=== PATIENT | male | born 1955 | race Caucasian/White ===

== ENCOUNTER 2022-06-15 17:12 | Inpatient (IN) | payer MEDICARE ==
[~2022-06-15] VITALS: Ht 190.5 cm; Wt 108.0 kg
[~2022-06-15 17:12] MED LIST: ASPI325EC PO; ATOR10; ATOR20 PO; BUPR150T2; Co Q-10300 MG PO; EZET10 PO; Ester-C 500 MG1 EACH PO; FEXPSEER PO; Fish Oil300 MG PO; Hydrocodone-Ap1 EA23 PO; IBUP800; KRILL OIL 3001 EACH PO; LISI5 PO; NEBI5 PO; NITR.4SL SL; VITAMIN D31000 UNIT PO; ZOLP10 PO; ZOLP5
[2022-06-15 17:36] LABS: Hematocrit 39.3 % (37.0-53.0); Hemoglobin 13.3 g/dL (13.5-17.5); Mean Corpuscular HGB 33.5 pg (26.0-34.0); Mean Corpuscular HGB Conc 33.8 g/dL (31.5-36.5); Mean Corpuscular Volume 99 fL (80-100); Mean Platelet Volume 9.6 fL (9.1-12.4); Platelet Count 202 K/mm3 (150-400); RDW Coefficient Variation 12.4 % (11.7-14.2); Red Blood Cell Count 3.97 M/mm3 (4.30-5.90); White Blood Cell Count 19.01 K/mm3 (4.00-11.30)
[2022-06-15 17:54] LABS: Albumin, Blood 3.9 g/dL (3.4-5.0); Albumin/Globulin Ratio 1.3 (0.8-1.8); Bilirubin, Total 0.8 mg/dL (0.1-1.0); Calcium, Blood 8.5 mg/dL (8.5-10.1); Creatinine, Blood 1.28 mg/dL (0.60-1.20); Globulin, Blood 3.1 g/dL (2.2-4.0); Magnesium, Blood 2.6 mg/dL (1.6-2.4); Potassium, Blood 4.3 mmol/L (3.5-5.5)
[2022-06-15 19:18] LABS: BASOPHILS PERCENT MAN 0 % (0-2); EOSINOPHILS PERCENT MAN 0 % (0-6); LYMPHOCYTES ABSOLUTE MAN 14.63 K/mm3 (0.84-5.20); LYMPHOCYTES PERCENT MAN 77 % (21-46); MONOCYTES ABSOLUTE MAN 0.76 K/mm3 (0.16-1.47); MONOCYTES PERCENT MAN 4 % (4-13); NEUTROPHILS ABSOLUTE MAN 3.61 K/mm3 (1.96-9.15); SEG NEUTROPHILS PERCENT MAN 19 % (41-73); TOTAL CELLS COUNTED 100
[2022-06-15] MEDS ORDERED: ASPI81CH PO (19:39)
[2022-06-15] MEDS ORDERED: Crestor20 MG PO (19:40)
[2022-06-15] MEDS ORDERED: Prinivil10 MG PO (19:40)
[2022-06-15] MEDS ORDERED: CARV3.125 PO (19:41)
[2022-06-15] MEDS ORDERED: SOAANZ20 M1 PO (19:42)
[2022-06-15] MEDS ORDERED: ELIQUIS5 M2 PO (19:42)
--- NOTE | 2022-06-16 03:37 | NUR ---
END OF SHIFT: INFUSING: LOWER DOSE OF AMIO INFUSING CURRENLTY. NEURO: PATIENT IS ALERT AND ORIENTED. PLEASANT AND ABLE TO MAKE NEEDS KNOWN. CHRONIC PAIN, UNDER CONTROL AT THIS TIME. CARDIAC: DENIES CHEST PAIN PRESSURE OR SOB AT THIS TIME. PATIENT HR LOW OF 49 AND INCREASES TO 70 WITH EXERTION AT TIMES. PATIENT ENDORSES TYPICALLY IN THE LOW 50'S AT BASELINE. PULM: RA NO CONCERNS. WILL CONTINUE TO MONITOR UNTIL SHIFT CHANGE. ECHO 06/16.
[2022-06-16 05:56] LABS: Calcium, Blood 8.4 mg/dL (8.5-10.1); Creatinine, Blood 1.05 mg/dL (0.60-1.20); Potassium, Blood 3.9 mmol/L (3.5-5.5)
--- NOTE | 2022-06-16 15:24 | NUR ---
UPDATE STRESS TEST STARTED BY HEART CENTER STAFF. BRUISING NOTED UNDER LEFT SIDE. PT STATES IT STARTED AFTER ECHO WAS DONE AND THAT IS WHERE THE ULTRASOUND PROBE WAS PUSHING ON HIM. PICTURE TAKEN AND DR. VALDES CALLED AND NOTIFIED.
--- NOTE | 2022-06-16 16:19 | NUR ---
SHIFT SUMMARY PT REMAINS ALERT AND ORIENTED. VS STABLE. HR HAS BEEN [place] LOW 50'S-60'S. BP STABLE. PT HAS DENIED ANY PAIN THIS SHIFT. FIRST PORTION OF STRESS TEST COMPLETE. PLAN FOR SECOND PORTION TOMORROW. PT INDEPENDENT IN THE ROOM. AT BEDSIDE. WILL CONTINUE TO MONITOR AND REPORT TO ONCOMING RN
--- NOTE | 2022-06-17 07:15 | NUR ---
PT ALERT NO S/S OF ACUTE DISTRESS. SAFETY MEASURES IN PLACE REPORT GIVEN TO ON COMING NURSE.
--- NOTE | 2022-06-17 07:45 | NUR ---
NURSING PCU DAYSHIFT: Assumed care of pt at approx 0700. A/O, very pleasant and cooperative w/care. Denies any pain/discomfort at rest. Able to reposition and ambulate independently. Skin is flushed, bruising noted to L flank and L/anterior ribs. Tele in place, SB w/first degree, HR 50's, no c/o CP/pressure, SBP 115 prior to a.m. meds, no noted edema. L/S cta t/o, O2 sat 100% on RA, denies dyspnea, no noted cough. Abd distended which pt states is normal, BT+, voiding w/o difficulty per pt. PIV x2, s/l. No s/s of acute distress this a.m. Plan for resting portion of stress test this a.m. (stress portion completed yesterday), breakfast after injection. Seen by cardiology, new d/o received. Pt denies any current needs or questions regarding plan of care. Call light in reach, cont to monitor for any changes.
[2022-06-17 08:04] LABS: BASOPHILS ABSOLUTE AUTO 0.06 K/mm3 (0.00-0.23); BASOPHILS PERCENT AUTO 0 % (0-2); EOSINOPHILS ABSOLUTE AUTO 0.12 K/mm3 (0.00-0.68); EOSINOPHILS PERCENT AUTO 1 % (0-6); Hemoglobin 12.9 g/dL (13.5-17.5); IMMATURE GRAN ABSOLUTE AUTO 0.06 K/mm3 (0.00-0.10); IMMATURE GRAN PERCENT AUTO 0 % (0-1); LYMPHOCYTES PERCENT AUTO 63 % (21-46); MONOCYTES ABSOLUTE AUTO 0.51 K/mm3 (0.16-1.47); MONOCYTES PERCENT AUTO 2 % (4-13); Mean Corpuscular HGB 33.7 pg (26.0-34.0); Mean Corpuscular HGB Conc 33.1 g/dL (31.5-36.5); Mean Corpuscular Volume 102 fL (80-100); Mean Platelet Volume 9.7 fL (9.1-12.4); NEUTROPHILS PERCENT AUTO 33 % (41-73); Platelet Count 184 K/mm3 (150-400); RDW Coefficient Variation 12.4 % (11.7-14.2); RDW Standard Deviation 46.8 fL (35.1-46.3); Red Blood Cell Count 3.83 M/mm3 (4.30-5.90); White Blood Cell Count 22.25 K/mm3 (4.00-11.30)
[2022-06-17 08:19] LABS: Bun/Creatinine Ratio 16.4 (12.0-20.0); Calcium, Blood 8.6 mg/dL (8.5-10.1); Creatinine, Blood 0.98 mg/dL (0.60-1.20)
[2022-06-17] MEDS ORDERED: ASPI81CH PO (15:13)
[2022-06-17] MEDS ORDERED: Amiodarone HCl200 MG PO (15:16)
--- NOTE | 2022-06-17 15:17 | NUR ---
NURSING PCU DISCHARGE SUMMARY: No significant changes noted t/o the shift. Stress test completed and reviewed by meteorology instructoraramis for discharge. PMD completed discharge home d/o, Rx's faxed to [facility] per pt request. Pt and s/o verbalized understanding of all written and verbal discharge instructions. PIV x2 dc'd w/caths intact. No s/s of acute distress, will escort from unit via w/c when dc is complete.
== END 2022-06-17 15:40 | disposition home or self-care (01) | DRG 281 ==
LOC: ER 17:12 → PCU 17:13 → ICUW 17:13 → PCU 20:12
PROVIDERS: Internal Medicine; Student in an Organized Health Care Education/Training Program; ADMIT Internal Medicine
PROC: 5A2204Z Restoration of Cardiac Rhythm, Single (ICD-10-PCS; principal; 2022-06-15)
DX: I47.1 Supraventricular tachycardia (principal); I21.4 Non-ST elevation (NSTEMI) myocardial infarction; C91.10 Chronic lymphocytic leukemia of B-cell type not having achieved remission; I50.22 Chronic systolic (congestive) heart failure; I25.10 Atherosclerotic heart disease of native coronary artery without angina pectoris; I47.29 Other ventricular tachycardia; I11.0 Hypertensive heart disease with heart failure; I48.0 Paroxysmal atrial fibrillation; R00.1 Bradycardia, unspecified; N40.0 Benign prostatic hyperplasia without lower urinary tract symptoms; I27.20 Pulmonary hypertension, unspecified; I44.0 Atrioventricular block, first degree; I25.5 Ischemic cardiomyopathy; G89.29 Other chronic pain; E78.5 Hyperlipidemia, unspecified; G47.00 Insomnia, unspecified; I48.92 Unspecified atrial flutter; Z96.652 Presence of left artificial knee joint; Z95.1 Presence of aortocoronary bypass graft; Z95.810 Presence of automatic (implantable) cardiac defibrillator; Z79.02 Long term (current) use of antithrombotics/antiplatelets; Z79.811 Long term (current) use of aromatase inhibitors; Z79.891 Long term (current) use of opiate analgesic; Z79.82 Long term (current) use of aspirin; Z98.890 Other specified postprocedural states; Z79.899 Other long term (current) drug therapy; Z87.891 Personal history of nicotine dependence
CPT/HCPCS: 36415; 71045; 78452; 80048; 80053; 83735; 84484; 85025; 92960; 93005; 93010; 93017; 93282; 96365-59; 96366-59; 96368; 96375-59; 96376-59; 99291-25; A9270; A9500; C8929; G0378; J0153; J0280; J0282; J2704; J2785; J3475; J7030; J7060; Q9957

== ENCOUNTER → 2023-05-15 | Outpatient (CLI) | payer MEDICARE ==
[~2023-05-15] MED LIST changes: +ASPI81CH PO; +Amiodarone HCl200 MG PO; +CARV3.125 PO; +Crestor20 MG PO; +ELIQUIS5 M2 PO; +Prinivil10 MG PO; +SOAANZ20 M1 PO
== END ==
LOC: LAB 16:19 → LAB SHORT 16:19
PROVIDERS: Internal Medicine Hematology & Oncology
DX: C91.10 Chronic lymphocytic leukemia of B-cell type not having achieved remission (principal)
CPT/HCPCS: 84100

== ENCOUNTER → 2023-06-04 | Outpatient (CLI) | payer MEDICARE ==
[2023-06-05 11:22] LABS: Stool Occult Bld Immuno 1 Negative (NEGATIVE)
== END ==
LOC: LAB SHORT 12:00 → LAB 12:00
PROVIDERS: Family Medicine
DX: R63.4 Abnormal weight loss (principal)
CPT/HCPCS: 82274

== ENCOUNTER → 2023-08-14 | Outpatient (CLI) | payer MEDICARE ==
[2023-08-14 23:27] LABS: Albumin/Globulin Ratio 1.5 (0.8-1.8); Bilirubin, Total 2.6 mg/dL (0.1-1.0); Bun/Creatinine Ratio 17.5 (12.0-20.0); Calcium, Blood 9.4 mg/dL (8.5-10.1); Creatinine, Blood 1.37 mg/dL (0.60-1.20); Globulin, Blood 2.6 g/dL (2.2-4.0); Phosphorus, Blood 3.6 mg/dL (2.5-4.9); Potassium, Blood 3.9 mmol/L (3.5-5.5); Total Protein, Blood 6.6 g/dL (6.4-8.2)
== END | disposition home or self-care (01) ==
LOC: LAB 15:48 → LAB SHORT 15:48
PROVIDERS: Internal Medicine Hematology & Oncology
DX: C91.10 Chronic lymphocytic leukemia of B-cell type not having achieved remission (principal)
CPT/HCPCS: 80053; 84100

== ENCOUNTER 2023-12-25 16:46 | Inpatient (IN) | payer MEDICARE ==
[~2023-12-25] VITALS: Ht 190.5 cm; Wt 91.0 kg
[2023-12-25] MEDS ORDERED: Furosemide 10 MG/ML 4ML Vial IV ONE (17:25)
[2023-12-25 17:27] LABS: BASOPHILS ABSOLUTE AUTO 0.02 K/mm3 (0.00-0.23); BASOPHILS PERCENT AUTO 0 % (0-2); EOSINOPHILS ABSOLUTE AUTO 0.03 K/mm3 (0.00-0.68); EOSINOPHILS PERCENT AUTO 0 % (0-6); Hematocrit 40.2 % (37.0-53.0); Hemoglobin 12.5 g/dL (13.5-17.5); IMMATURE GRAN ABSOLUTE AUTO 0.02 K/mm3 (0.00-0.10); IMMATURE GRAN PERCENT AUTO 0 % (0-1); LYMPHOCYTES PERCENT AUTO 41 % (21-46); MONOCYTES ABSOLUTE AUTO 0.29 K/mm3 (0.16-1.47); MONOCYTES PERCENT AUTO 4 % (4-13); Mean Corpuscular HGB 29.2 pg (26.0-34.0); Mean Corpuscular HGB Conc 31.1 g/dL (31.5-36.5); Mean Corpuscular Volume 94 fL (80-100); NEUTROPHILS PERCENT AUTO 55 % (41-73); NRBC ABSOLUTE 0.03 K/mm3 (0.00-0.02); NRBC Auto 0.4 /100 WBC (0.0-0.2); Platelet Count 130 K/mm3 (150-400); RDW Coefficient Variation 21.2 % (11.7-14.2); RDW Standard Deviation 68.7 fL (35.1-46.3); Red Blood Cell Count 4.28 M/mm3 (4.30-5.90); White Blood Cell Count 7.86 K/mm3 (4.00-11.30)
[2023-12-25] MEDS ORDERED: FARXIGA10 MG PO (17:30)
[2023-12-25] MEDS ORDERED: Norco 5-325 Ta1 EACH PO (17:31)
[2023-12-25] MEDS ORDERED: NITR.4SL SL (17:31)
[2023-12-25] MEDS ORDERED: OMEP20ER PO (17:31)
[2023-12-25] MEDS ORDERED: KLOR-CON 1010 ME9 PO (17:33)
[2023-12-25 17:44] LABS: Albumin, Blood 3.6 g/dL (3.4-5.0); Albumin/Globulin Ratio 1.1 (0.8-1.8); Bilirubin, Total 3.3 mg/dL (0.1-1.0); Bun/Creatinine Ratio 14.5 (12.0-20.0); Creatinine, Blood 1.45 mg/dL (0.60-1.20); Globulin, Blood 3.4 g/dL (2.2-4.0); Potassium, Blood 3.9 mmol/L (3.5-5.5)
[2023-12-25 18:41] LABS: Influenza A, PCR NEGATIVE (NEGATIVE); Influenza B, PCR NEGATIVE (NEGATIVE); Resp Syncytial Virus, PCR NEGATIVE (NEGATIVE); SARS-Cov-2 (COVID-19) PCR, MMC NEGATIVE (NEGATIVE)
[2023-12-25] MEDS ORDERED: Acetaminophen 325 MG TABLET PO PRN (19:40)
[2023-12-25] MEDS ORDERED: Ondansetron HCl 2 MG / ML 2ML Vial IV PRN (19:45)
[2023-12-25] MEDS ORDERED: Zolpidem Tartrate 10 MG Tab PO PRN (19:45)
[2023-12-25] MEDS ORDERED: Apixaban 5 MG Tab PO SCH (21:00)
[2023-12-25 21:25] VITALS: BP 107/80
--- NOTE | 2023-12-25 23:28 | NUR ---
late entry 2134 pt admit from er. alert and oriented x4, able to make needs known. pt is independent, instructed to call for assistance if feeling sob. pt verbalized understanding. continuous pulse ox initiated. r.a. pt denies c/p and pressure. edema noted in BLE. legs elevated above heart level.
[2023-12-26 03:14] VITALS: BP 121/74
[2023-12-26 05:16] LABS: Hematocrit 37.8 % (37.0-53.0); Hemoglobin 11.9 g/dL (13.5-17.5); Mean Corpuscular HGB 29.4 pg (26.0-34.0); Mean Corpuscular HGB Conc 31.5 g/dL (31.5-36.5); Mean Corpuscular Volume 93 fL (80-100); Mean Platelet Volume 11.8 fL (9.1-12.4); NRBC ABSOLUTE 0.02 K/mm3 (0.00-0.02); NRBC Auto 0.2 /100 WBC (0.0-0.2); Platelet Count 154 K/mm3 (150-400); RDW Coefficient Variation 20.9 % (11.7-14.2); RDW Standard Deviation 68.3 fL (35.1-46.3); Red Blood Cell Count 4.05 M/mm3 (4.30-5.90); White Blood Cell Count 9.96 K/mm3 (4.00-11.30)
--- NOTE | 2023-12-26 05:20 | NUR ---
NO ACUTE CHANGES OVERNIGHT, PT MAINTAINED 02 98-100% ON R.A. DID NOT SLEEP WELL. ABLE TO MAKE NEEDS KNOWN.
[2023-12-26 05:59] LABS: Albumin, Blood 3.7 g/dL (3.4-5.0); Albumin/Globulin Ratio 1.2 (0.8-1.8); Bilirubin, Total 3.4 mg/dL (0.1-1.0); Bun/Creatinine Ratio 14.3 (12.0-20.0); Calcium, Blood 8.7 mg/dL (8.5-10.1); Creatinine, Blood 1.54 mg/dL (0.60-1.20); Magnesium, Blood 2.6 mg/dL (1.6-2.4); Potassium, Blood 3.3 mmol/L (3.5-5.5); Total Protein, Blood 6.7 g/dL (6.4-8.2)
[2023-12-26 06:09] LABS: BASOPHILS PERCENT MAN 0 % (0-2); EOSINOPHILS PERCENT MAN 0 % (0-6); LYMPHOCYTES ABSOLUTE MAN 4.88 K/mm3 (0.84-5.20); LYMPHOCYTES PERCENT MAN 49 % (21-46); MONOCYTES ABSOLUTE MAN 0.69 K/mm3 (0.16-1.47); MONOCYTES PERCENT MAN 7 % (4-13); NEUTROPHILS ABSOLUTE MAN 4.38 K/mm3 (1.96-9.15); SEG NEUTROPHILS PERCENT MAN 44 % (41-73); TOTAL CELLS COUNTED 100
[2023-12-26 07:37] VITALS: BP 129/84
[2023-12-26] MEDS ORDERED: Potassium Chloride 20 MEQ TabCR PO SCH (08:00)
[2023-12-26] MEDS ORDERED: Carvedilol 3.125 MG Tab PO SCH (08:00)
[2023-12-26] MEDS ORDERED: Amiodarone HCl 200 MG Tab PO SCH (09:00)
[2023-12-26] MEDS ORDERED: Furosemide 10 MG/ML 4ML Vial IV SCH (09:00)
[2023-12-26] MEDS ORDERED: Aspirin 81 MG Chew PO SCH (09:00)
[2023-12-26] MEDS ORDERED: Lisinopril 10 MG Tab PO SCH (09:00)
[2023-12-26] MEDS ORDERED: Atorvastatin 10 MG Tab PO SCH ×2 (09:00→21:00)
[2023-12-26] MEDS ORDERED: Torsemide 20 MG TAB PO SCH (09:00)
--- NOTE | 2023-12-26 09:58 | NUR ---
TELEPHONE ORDERS CALLED [facility] REGARDING PATIENT'S HOME MEDICATIONS AND UPDATED MULTIPLE ORDERS. CURRENT ORDERS INCLUDE: AMDIODARONE 100 MG PO DAILY. LIPITOR 20MG PO NIGHTLY. AND LISINOPRIL DISCONTINUED. NO OTHER CONCERNS AT THIS TIME.
[2023-12-26] MEDS ORDERED: FURO40 PO (14:43)
--- NOTE | 2023-12-26 15:30 | NUR ---
DISCHARGE NOTE PATIENT A/OX4, ABLE TO MAKE NEEDS KNOWN. INDEPENDENT IN ROOM WITH AMBULATION. TELEMTRY REMOVED PRIOR TO DISCHARGE AND PIC REMOVED WELL. PATIENT'S , ELZBIETA, AT BEDSIDE ALL OF SHIFT. ECHOCARDIOGRAM OBTAINED TODAY. PATIENT EDUCATED REGARDING NEW MEDICATIONS AND PROVIDED EDUCATIONS PACKETS REGARDING FLUIDS RESTRICTION, HEART FAILURE, AND EDEMA. PATIENT AND WITH ALL QUESTIONS ANSWERED AT TIME OF DISCHARGE. PATIENT EDUCATED OF REFERRALS TO CARIODOLOGY AND PCP. NO OTHER CONCERNS AT TIME OF DISCHARGE. PATIENT ASSISTED TO FAMILY VEHICLE BY [facility] STAFF WITH ALL BELONGINGS.
[2023-12-27] MEDS ORDERED: Amiodarone HCl 200 MG Tab PO SCH (09:00)
== END 2023-12-26 15:00 | disposition home or self-care (01) | DRG 194 ==
LOC: ER 16:46 → MEDS 16:47 → ENPENDDIS 12-26 14:42 → MEDS 12-26 14:58
PROVIDERS: Emergency Medicine; ADMIT Student in an Organized Health Care Education/Training Program
DX: I13.0 Hypertensive heart and chronic kidney disease with heart failure and stage 1 through stage 4 chronic kidney disease, or unspecified chronic kidney disease (principal); I50.43 Acute on chronic combined systolic (congestive) and diastolic (congestive) heart failure; I25.5 Ischemic cardiomyopathy; I07.1 Rheumatic tricuspid insufficiency; I25.10 Atherosclerotic heart disease of native coronary artery without angina pectoris; I48.0 Paroxysmal atrial fibrillation; C91.10 Chronic lymphocytic leukemia of B-cell type not having achieved remission; R79.1 Abnormal coagulation profile; I44.0 Atrioventricular block, first degree; N18.31 Chronic kidney disease, stage 3a; Z95.1 Presence of aortocoronary bypass graft; Z79.01 Long term (current) use of anticoagulants; Z79.82 Long term (current) use of aspirin; Z87.891 Personal history of nicotine dependence; Z95.810 Presence of automatic (implantable) cardiac defibrillator
CPT/HCPCS: 0241U; 36415; 71046; 71260; 80053; 83735; 83880; 84484; 85025; 85379; 93005; 93010; 96374; 99285-25; A9270; C8929; G0378; J1940; Q9957; Q9967

== ENCOUNTER → 2024-01-27 | Outpatient (CLI) | payer MEDICARE ==
[~2024-01-27] MED LIST changes: +FARXIGA10 MG PO; +FURO40 PO; +KLOR-CON 1010 ME9 PO; +Norco 5-325 Ta1 EACH PO; +OMEP20ER PO
[2024-01-27 15:29] LABS: Source, Urine Clean Catch
[2024-01-27 16:10] LABS: Appearance, Urine Clear (Clear); Bilirubin, Urine Neg (Neg); Blood, Urine Neg (Neg); Color, Urine Yellow (P-Yellow); Glucose Qualitative, Urine 4+ (Neg); Ketones, Urine Neg (Neg); Leukocyte Esterase, Urine Neg (Neg); Nitrite, Urine Neg (Neg); Protein, Urine 1+ (Neg); Urobilinogen, Urine 1+ (Normal); pH, Urine 6.5 (5.0-8.0)
[2024-01-27 17:22] LABS: BASOPHILS ABSOLUTE AUTO 0.05 K/mm3 (0.00-0.23); BASOPHILS PERCENT AUTO 1 % (0-2); EOSINOPHILS ABSOLUTE AUTO 0.05 K/mm3 (0.00-0.68); EOSINOPHILS PERCENT AUTO 1 % (0-6); Hemoglobin 12.7 g/dL (13.5-17.5); IMMATURE GRAN ABSOLUTE AUTO 0.02 K/mm3 (0.00-0.10); IMMATURE GRAN PERCENT AUTO 0 % (0-1); LYMPHOCYTES ABSOLUTE AUTO 3.94 K/mm3 (0.84-5.20); LYMPHOCYTES PERCENT AUTO 50 % (21-46); MONOCYTES PERCENT AUTO 3 % (4-13); Mean Corpuscular HGB 32.9 pg (26.0-34.0); Mean Corpuscular HGB Conc 31.8 g/dL (31.5-36.5); Mean Corpuscular Volume 104 fL (80-100); Mean Platelet Volume 10.3 fL (9.1-12.4); NEUTROPHILS PERCENT AUTO 47 % (41-73); Platelet Count 129 K/mm3 (150-400); RDW Coefficient Variation 26.5 % (11.7-14.2); RDW Standard Deviation 99.2 fL (35.1-46.3); Red Blood Cell Count 3.86 M/mm3 (4.30-5.90); White Blood Cell Count 7.96 K/mm3 (4.00-11.30)
[2024-01-27 17:55] LABS: Percent Saturation 30.2 % (20.0-50.0)
== END ==
LOC: LAB SHORT 15:26 → LAB 15:26
PROVIDERS: Internal Medicine Hematology & Oncology
DX: C91.10 Chronic lymphocytic leukemia of B-cell type not having achieved remission (principal); R30.0 Dysuria; E61.1 Iron deficiency
CPT/HCPCS: 82728; 83540; 83550; 85025

== ENCOUNTER → 2024-03-24 | Outpatient (CLI) | payer MEDICARE ==
[2024-03-25 17:00] LABS: Albumin, Blood 3.6 g/dL (3.4-5.0); Albumin/Globulin Ratio 1.4 (0.8-1.8); Bilirubin, Indirect 2.8 mg/dL (0.1-0.7); Bilirubin, Total 4.8 mg/dL (0.1-1.0); Bun/Creatinine Ratio 21.1 (12.0-20.0); Calcium, Blood 8.4 mg/dL (8.5-10.1); Creatinine, Blood 1.28 mg/dL (0.60-1.20); Globulin, Blood 2.6 g/dL (2.2-4.0); Potassium, Blood 3.2 mmol/L (3.5-5.5); Total Protein, Blood 6.2 g/dL (6.4-8.2)
== END ==
LOC: LAB 16:00 → LAB SHORT 16:00
PROVIDERS: Internal Medicine Hematology & Oncology
DX: E53.8 Deficiency of other specified B group vitamins (principal); E80.6 Other disorders of bilirubin metabolism
CPT/HCPCS: 80053; 82248; 82607; 82746

== ENCOUNTER → 2024-04-21 | Outpatient (CLI) | payer MEDICARE ==
[2024-04-21 17:22] LABS: BASOPHILS ABSOLUTE AUTO 0.04 K/mm3 (0.00-0.23); BASOPHILS PERCENT AUTO 1 % (0-2); EOSINOPHILS ABSOLUTE AUTO 0.07 K/mm3 (0.00-0.68); EOSINOPHILS PERCENT AUTO 1 % (0-6); Hematocrit 36.8 % (37.0-53.0); IMMATURE GRAN ABSOLUTE AUTO 0.02 K/mm3 (0.00-0.10); IMMATURE GRAN PERCENT AUTO 0 % (0-1); LYMPHOCYTES ABSOLUTE AUTO 2.11 K/mm3 (0.84-5.20); LYMPHOCYTES PERCENT AUTO 30 % (21-46); MONOCYTES ABSOLUTE AUTO 0.22 K/mm3 (0.16-1.47); MONOCYTES PERCENT AUTO 3 % (4-13); Mean Corpuscular HGB 35.9 pg (26.0-34.0); Mean Corpuscular HGB Conc 32.6 g/dL (31.5-36.5); Mean Corpuscular Volume 110 fL (80-100); Mean Platelet Volume 10.7 fL (9.1-12.4); NEUTROPHILS PERCENT AUTO 66 % (41-73); Platelet Count 134 K/mm3 (150-400); RDW Coefficient Variation 15.1 % (11.7-14.2); RDW Standard Deviation 61.8 fL (35.1-46.3); Red Blood Cell Count 3.34 M/mm3 (4.30-5.90); White Blood Cell Count 7.16 K/mm3 (4.00-11.30)
== END ==
LOC: LAB 16:03 → LAB SHORT 16:03
PROVIDERS: Internal Medicine Hematology & Oncology
DX: C91.10 Chronic lymphocytic leukemia of B-cell type not having achieved remission (principal); R63.4 Abnormal weight loss
CPT/HCPCS: 85025

== ENCOUNTER 2025-01-01 08:20 | Emergency (ER) | payer MEDICARE ==
[~2025-01-01] VITALS: Ht 190.5 cm; Wt 79.4 kg
[~2025-01-01 08:20] MED LIST changes: +COENZYME Q-10100 MG PO; +EPLE25 PO; +EUTHYROX75 MC1 PO; +Imdur60 MG PO; +KLOR-CON M1010 MEQ PO; +LACT10SY PO; +PACERONE100 M1 PO; +RIFA550T2 PO; +TORSE20 PO
[2025-01-01 08:24] VITALS: BP 111/77
[2025-01-01 08:54] LABS: BASOPHILS ABSOLUTE AUTO 0.05 K/mm3 (0.00-0.23); BASOPHILS PERCENT AUTO 1 % (0-2); EOSINOPHILS ABSOLUTE AUTO 0.04 K/mm3 (0.00-0.68); EOSINOPHILS PERCENT AUTO 0 % (0-6); Hematocrit 40.8 % (37.0-53.0); Hemoglobin 13.9 g/dL (13.5-17.5); IMMATURE GRAN ABSOLUTE AUTO 0.01 K/mm3 (0.00-0.10); IMMATURE GRAN PERCENT AUTO 0 % (0-1); LYMPHOCYTES ABSOLUTE AUTO 4.54 K/mm3 (0.84-5.20); LYMPHOCYTES PERCENT AUTO 49 % (21-46); MONOCYTES ABSOLUTE AUTO 0.31 K/mm3 (0.16-1.47); MONOCYTES PERCENT AUTO 3 % (4-13); Mean Corpuscular HGB Conc 34.1 g/dL (31.5-36.5); Mean Corpuscular Volume 110 fL (80-100); NEUTROPHILS ABSOLUTE AUTO 4.33 K/mm3 (1.96-9.15); NEUTROPHILS PERCENT AUTO 47 % (41-73); NRBC ABSOLUTE 0.00 K/mm3 (0.00-0.02); NRBC Auto 0.0 /100 WBC (0.0-0.2); Platelet Count 115 K/mm3 (150-400); RDW Coefficient Variation 14.7 % (11.7-14.2); RDW Standard Deviation 60.3 fL (35.1-46.3)
[2025-01-01 09:09] LABS: Alanine Aminotransfer (ALT/SGP 19.0 U/L (12-78); Albumin, Blood 3.5 g/dL (3.4-5.0); Albumin/Globulin Ratio 1.2 (0.8-1.8); Anion Gap 13.0 mmol/L (3-11); Aspartate Aminotrans (AST/SGOT 34.0 U/L (12-37); Bilirubin, Total 4.7 mg/dL (0.1-1.0); Blood Urea Nitrogen 28.0 mg/dL (8-24); CO2, Blood 27.0 mmol/L (21-32); Calcium, Blood 8.6 mg/dL (8.5-10.1); Chloride, Blood 89.0 mmol/L (98-108); Creatinine, Blood 1.14 mg/dL (0.60-1.20); Globulin, Blood 2.9 g/dL (2.2-4.0); Glucose, Blood 84.0 mg/dL (70-99); Potassium, Blood 3.6 mmol/L (3.5-5.5); Sodium, Blood 125.0 mmol/L (136-145); Total Protein, Blood 6.4 g/dL (6.4-8.2)
[2025-01-01 09:14] LABS: Source, Urine Clean Catch
[2025-01-01 09:20] LABS: Bilirubin, Urine Neg (Neg); Color, Urine Yellow (P-Yellow); Glucose Qualitative, Urine 3+ (Neg); Ketones, Urine Neg (Neg); Leukocyte Esterase, Urine Neg (Neg); Protein, Urine 1+ (Neg); Specific Gravity, Urine 1.010 (1.003-1.022); Urobilinogen, Urine 1+ (Normal)
[2025-01-01] MEDS ORDERED: NS 1,000 ML IV SCH (11:15)
== END 2025-01-01 13:33 | disposition home or self-care (01) ==
LOC: ER 08:20
PROVIDERS: Student in an Organized Health Care Education/Training Program
DX: S01.01XA Laceration without foreign body of scalp, initial encounter (principal); E87.1 Hypo-osmolality and hyponatremia; R29.6 Repeated falls; K72.90 Hepatic failure, unspecified without coma; W01.0XXA Fall on same level from slipping, tripping and stumbling without subsequent striking against object, initial encounter; Z87.891 Personal history of nicotine dependence; Z79.899 Other long term (current) drug therapy; Z88.8 Allergy status to other drugs, medicaments and biological substances
CPT/HCPCS: 12001; 70450; 80053; 85025; 93005; 93010; 99284-25

== ENCOUNTER 2025-01-20 11:58 | Inpatient (IN) | payer MEDICARE ==
[~2025-01-20] VITALS: Ht 190.5 cm; Wt 72.2 kg
[2025-01-20] VITALS (8 sets, daily range): BP systolic 99–125; BP diastolic 67–85
[2025-01-20 13:12] LABS: Hematocrit 38.6 % (37.0-53.0); Hemoglobin 13.5 g/dL (13.5-17.5); Mean Corpuscular HGB Conc 35.0 g/dL (31.5-36.5); Mean Corpuscular Volume 109 fL (80-100); NRBC ABSOLUTE 0.04 K/mm3 (0.00-0.02); NRBC Auto 0.4 /100 WBC (0.0-0.2); Platelet Count 79 K/mm3 (150-400); RDW Coefficient Variation 14.9 % (11.7-14.2); RDW Standard Deviation 59.9 fL (35.1-46.3)
[2025-01-20 13:42] LABS: Alanine Aminotransfer (ALT/SGP 19.0 U/L (12-78); Albumin, Blood 3.3 g/dL (3.4-5.0); Albumin/Globulin Ratio 1.2 (0.8-1.8); Anion Gap 12.0 mmol/L (3-11); Aspartate Aminotrans (AST/SGOT 29.0 U/L (12-37); Bilirubin, Total 4.2 mg/dL (0.1-1.0); Blood Urea Nitrogen 44.0 mg/dL (8-24); CO2, Blood 27.0 mmol/L (21-32); Calcium, Blood 8.6 mg/dL (8.5-10.1); Chloride, Blood 87.0 mmol/L (98-108); Creatinine, Blood 1.34 mg/dL (0.60-1.20); Globulin, Blood 2.7 g/dL (2.2-4.0); Glucose, Blood 80.0 mg/dL (70-99); Potassium, Blood 4.0 mmol/L (3.5-5.5); Sodium, Blood 122.0 mmol/L (136-145); Total Protein, Blood 6.0 g/dL (6.4-8.2)
[2025-01-20 14:26] LABS: BASOPHILS ABSOLUTE MAN 0.00 K/mm3 (0.00-0.23); BASOPHILS PERCENT MAN 0 % (0-2); EOSINOPHILS ABSOLUTE MAN 0.00 K/mm3 (0.00-0.68); EOSINOPHILS PERCENT MAN 0 % (0-6); LYMPHOCYTES ABSOLUTE MAN 5.66 K/mm3 (0.84-5.20); LYMPHOCYTES PERCENT MAN 56 % (21-46); MONOCYTES ABSOLUTE MAN 0.50 K/mm3 (0.16-1.47); MONOCYTES PERCENT MAN 5 % (4-13); NEUTROPHILS ABSOLUTE MAN 3.94 K/mm3 (1.96-9.15); SEG NEUTROPHILS PERCENT MAN 39 % (41-73)
[2025-01-20 15:15] LABS: Source, Urine Clean Catch
[2025-01-20 15:19] LABS: Bilirubin, Urine Neg (Neg); Color, Urine Yellow (P-Yellow); Glucose Qualitative, Urine 2+ (Neg); Ketones, Urine Neg (Neg); Leukocyte Esterase, Urine Neg (Neg); Protein, Urine 1+ (Neg); Specific Gravity, Urine 1.010 (1.003-1.022); Urobilinogen, Urine NORM (Normal)
[2025-01-20] MEDS ORDERED: POTCHL20ER PO (15:22)
[2025-01-20] MEDS ORDERED: TORSE20 PO (15:23)
[2025-01-20] MEDS ORDERED: FLU VACC TS2025(65UP)/MF59C/PF 45 MCG/0.5 ML SYRINGE IM SCH (16:20)
[2025-01-20] MEDS ORDERED: HYDROcodone 5-APAP 325 TAB PO PRN (17:40)
[2025-01-21] VITALS (22 sets, daily range): BP systolic 83–112; BP diastolic 49–86
[2025-01-21 03:43] LABS: Hematocrit 38.7 % (37.0-53.0); Hemoglobin 13.2 g/dL (13.5-17.5); Mean Corpuscular HGB Conc 34.1 g/dL (31.5-36.5); Mean Corpuscular Volume 110 fL (80-100); NRBC ABSOLUTE 0.02 K/mm3 (0.00-0.02); NRBC Auto 0.2 /100 WBC (0.0-0.2); Platelet Count 83 K/mm3 (150-400); RDW Coefficient Variation 15.1 % (11.7-14.2); RDW Standard Deviation 61.1 fL (35.1-46.3)
[2025-01-21 04:02] LABS: Anion Gap 10.0 mmol/L (3-11); Blood Urea Nitrogen 40.0 mg/dL (8-24); CO2, Blood 30.0 mmol/L (21-32); Calcium, Blood 8.5 mg/dL (8.5-10.1); Chloride, Blood 87.0 mmol/L (98-108); Creatinine, Blood 1.36 mg/dL (0.60-1.20); Glucose, Blood 81.0 mg/dL (70-99); Potassium, Blood 3.5 mmol/L (3.5-5.5); Sodium, Blood 123.0 mmol/L (136-145)
[2025-01-21 04:53] LABS: BAND PERCENT MAN 3 % (0-8); BASOPHILS ABSOLUTE MAN 0.00 K/mm3 (0.00-0.23); BASOPHILS PERCENT MAN 0 % (0-2); EOSINOPHILS ABSOLUTE MAN 0.00 K/mm3 (0.00-0.68); EOSINOPHILS PERCENT MAN 0 % (0-6); LYMPHOCYTES ABSOLUTE MAN 5.03 K/mm3 (0.84-5.20); LYMPHOCYTES PERCENT MAN 52 % (21-46); MONOCYTES ABSOLUTE MAN 0.38 K/mm3 (0.16-1.47); MONOCYTES PERCENT MAN 4 % (4-13); NEUTROPHILS ABSOLUTE MAN 4.25 K/mm3 (1.96-9.15); SEG NEUTROPHILS PERCENT MAN 41 % (41-73)
--- NOTE | 2025-01-21 05:32 | NUR ---
SHIFT SUMMARY RECEIVED PT FROM ED AT BEGINNING OF SHIFT LAST NIGHT. PT A/O X4, PLEASANT/COOPERATIVE, FOLLOWS COMMANDS. VSS. AFEBRILE. NORCO GIVEN PRN FOR CHRONIC HIP/LEG PAIN. UP TO BS MULT TIMES T/O NIGHT TO USE URINAL. STATES HIS URGENCY AND FREQUENCY IS HIS BASELINE AT HOME. WILL UPDATE DAY RN WITH ALL OUTSTANDING ISSUES AND PROBLEMS TO DATE.
--- NOTE | 2025-01-21 07:41 | NUR ---
ASSUMED CARE OF PATIENT AT APPROXIMATELY 0700. REPORT RECEIVED FROM MEG SCHNEIDER. PT AWAKE IN BED, INTERACTING c STAFF APPROPRIATELY DURING BEDSIDE REPORT. CONTINUOUS CARDIAC MONITORING IN PLACE. ON RA c O2 SATURATION > 92%. BLE EDEMA NOTED. PIV TO RFA SALINE LOCKED. SEE SHIFT ASSESSMENT FOR FULL DETAILS.
[2025-01-21] MEDS ORDERED: Enoxaparin 40 MG/0.4 ML SYR SC SCH (09:00)
[2025-01-21] MEDS ORDERED: Bumetanide 0.25 MG/ML 10ML Vial IV ONE (09:55)
[2025-01-21] MEDS ORDERED: Potassium Chloride 10 Meq Tablet SA PO ONE (09:55)
[2025-01-21 14:21] LABS: Prothrombin Time Results 14.0 Sec (9.7-11.5)
[2025-01-21 14:28] LABS: Alanine Aminotransfer (ALT/SGP 21.0 U/L (12-78); Albumin, Blood 3.4 g/dL (3.4-5.0); Albumin/Globulin Ratio 1.2 (0.8-1.8); Anion Gap 12.0 mmol/L (3-11); Aspartate Aminotrans (AST/SGOT 31.0 U/L (12-37); Bilirubin, Total 3.9 mg/dL (0.1-1.0); Blood Urea Nitrogen 41.0 mg/dL (8-24); CO2, Blood 29.0 mmol/L (21-32); Calcium, Blood 8.2 mg/dL (8.5-10.1); Chloride, Blood 87.0 mmol/L (98-108); Creatinine, Blood 1.26 mg/dL (0.60-1.20); Globulin, Blood 2.8 g/dL (2.2-4.0); Glucose, Blood 112.0 mg/dL (70-99); Potassium, Blood 3.0 mmol/L (3.5-5.5); Sodium, Blood 125.0 mmol/L (136-145); Total Protein, Blood 6.2 g/dL (6.4-8.2)
--- NOTE | 2025-01-21 17:34 | NUR ---
SHIFT SUMMARY PT REMAINED ALERT AND ORIENTED X 4 T/O ENTIRETY OF SHIFT. ABLE TO FOLLOW COMMANDS, MAKE PURPOSEFUL MOVEMENTS, AND MAKE NEEDS KNOWN. AFEBRILE. REPORTS PAIN IN L HIP, KNEE, AND FOOT. MEDICATED PER EMAR c GOOD BENEFIT. CONTINUOUS CARDIAC MONITORING IN PLACE, BP STABLE. CK CONSULTED THIS SHIFT, SEE NOTES. ON RA c O2 SATURATIONS > 92%. DIURESED THIS SHIFT c BUMEX AND METOLAZONE. IVEY PLACED FOR CRITICAL I&O'S. NO BM THIS SHIFT. TOLERATING PO MEDS AND INTAKE WELL. BLE'S WITH MILD BLISTERS/WEEPING. ABD DRESSINGS APPLIED PER DR. FRANCIE pineda PHOTOS IN CHART. ABRASIONS TO L HAND FROM PREVIOUS FALL REDRESSED, PHOTOS IN CHART. PG TO MARKEL, PIV TO RFA. KCL REPLACED THIS SHIFT. NURSE NOTIFIES IN PLACE, PRIYAX ON HOLD FOR PARACENTESIS 01/22/25. WILL CONTINUE TO MONITOR AND REPORT TO ONCOMING RN.
[2025-01-21] MEDS ORDERED: Mag Sulfate 1 GM/D5% 100ML 100 ML IV ONE (18:35)
[2025-01-22] VITALS (21 sets, daily range): BP systolic 88–112; BP diastolic 60–86
[2025-01-22 04:42] LABS: Hematocrit 38.8 % (37.0-53.0); Hemoglobin 13.3 g/dL (13.5-17.5); Mean Corpuscular HGB Conc 34.3 g/dL (31.5-36.5); Mean Corpuscular Volume 110 fL (80-100); NRBC ABSOLUTE 0.00 K/mm3 (0.00-0.02); NRBC Auto 0.0 /100 WBC (0.0-0.2); Platelet Count 78 K/mm3 (150-400); RDW Coefficient Variation 15.1 % (11.7-14.2); RDW Standard Deviation 61.0 fL (35.1-46.3)
[2025-01-22 05:05] LABS: Albumin, Blood 3.4 g/dL (3.4-5.0); Anion Gap 9 mmol/L (3-11); Blood Urea Nitrogen 37 mg/dL (8-24); CO2, Blood 33 mmol/L (21-32); Calcium, Blood 8.3 mg/dL (8.5-10.1); Chloride, Blood 87 mmol/L (98-108); Creatinine, Blood 1.24 mg/dL (0.60-1.20); Glucose, Blood 103 mg/dL (70-99); Phosphorus, Blood 3.4 mg/dL (2.5-4.9); Potassium, Blood 3.1 mmol/L (3.5-5.5); Sodium, Blood 126 mmol/L (136-145)
[2025-01-22 05:26] LABS: BAND PERCENT MAN 3 % (0-8); BASOPHILS ABSOLUTE MAN 0.00 K/mm3 (0.00-0.23); BASOPHILS PERCENT MAN 0 % (0-2); EOSINOPHILS ABSOLUTE MAN 0.00 K/mm3 (0.00-0.68); EOSINOPHILS PERCENT MAN 0 % (0-6); LYMPHOCYTES % ATYPICAL MANUAL 1 % (0-0); LYMPHOCYTES ABSOLUTE MAN 6.12 K/mm3 (0.84-5.20); LYMPHOCYTES PERCENT MAN 54 % (21-46); MONOCYTES ABSOLUTE MAN 0.11 K/mm3 (0.16-1.47); MONOCYTES PERCENT MAN 1 % (4-13); NEUTROPHILS ABSOLUTE MAN 4.90 K/mm3 (1.96-9.15); SEG NEUTROPHILS PERCENT MAN 41 % (41-73)
--- NOTE | 2025-01-22 06:36 | NUR ---
SHIFT SUMMARY A/O X4, RESTLESS DURING NIGHT, DIFFICULTY SLEEPING DESPITE HIS USUAL AMBIEN AND NORCO PRN FOR HIP PAIN. UP TO [facility] FOR LARGE, FIRM BM, ABLE TO TRANSFER WITH MIN SB ASSIST. CONTINUED TO DIURESE T/O NIGHT, OVER 4 LITERS U.O. K+ ON AM LABS 3.1, DR US UPDATED, ORDERED K+ REPLACEMENT IV WHICH IS CURRENTLY INFUSING. NPO AFTER MIDNIGHT FOR PLANNED PERICENTESIS LATER TODAY. VSS T/O NIGHT. WILL UPDATE DAY RN WITH ALL OUTSTANDING ISSUES AND PROBLEMS TO DATE.
[2025-01-22] MEDS ORDERED: Albumin (Human) 25gm/100ml 100 ML IV ONE (16:45)
[2025-01-22 17:30] LABS: Anion Gap 10.0 mmol/L (3-11); Blood Urea Nitrogen 32.0 mg/dL (8-24); CO2, Blood 34.0 mmol/L (21-32); Calcium, Blood 8.6 mg/dL (8.5-10.1); Chloride, Blood 88.0 mmol/L (98-108); Creatinine, Blood 1.16 mg/dL (0.60-1.20); Glucose, Blood 87.0 mg/dL (70-99); Potassium, Blood 3.0 mmol/L (3.5-5.5); Sodium, Blood 129.0 mmol/L (136-145)
--- NOTE | 2025-01-22 18:47 | NUR ---
Patient admitted to ICU with increased edema. Edema has decreased with diureses. Patient now entered as Progressive Care Unit status. Patient tolerated paracentesis well today, see post procedure note, received 25g Albumin post procedure. Patient was pleasant to interact with throughout the day with at beside for the majority of the shift. Per Dr Luiza doshi and BP meds to resume tomorrow
--- NOTE | 2025-01-22 22:06 | NUR ---
ASSUMPTION OF CARE ASSUMED CARE OF PT AT APPROX 1900. VENTRICULAR PACED RHYTHM ON MONITOR WITH RATE OF 50-54, AICD IS CURRENTLY OFF, BP STABLE WITH MAP >65, SATS >90% ON RA. IVEY IN PLACE AND DRAINING TO GRAVITY, DENIES CP OR SOB, DENIES UNMET NEEDS AT THIS TIME, CALL LIGHT WITHIN REACH.
[2025-01-23] VITALS (9 sets, daily range): BP systolic 88–117; BP diastolic 51–85
[2025-01-23 03:59] LABS: BASOPHILS ABSOLUTE AUTO 0.02 K/mm3 (0.00-0.23); BASOPHILS PERCENT AUTO 0 % (0-2); EOSINOPHILS ABSOLUTE AUTO 0.04 K/mm3 (0.00-0.68); EOSINOPHILS PERCENT AUTO 0 % (0-6); Hematocrit 39.8 % (37.0-53.0); Hemoglobin 13.4 g/dL (13.5-17.5); IMMATURE GRAN ABSOLUTE AUTO 0.02 K/mm3 (0.00-0.10); IMMATURE GRAN PERCENT AUTO 0 % (0-1); LYMPHOCYTES ABSOLUTE AUTO 4.40 K/mm3 (0.84-5.20); LYMPHOCYTES PERCENT AUTO 48 % (21-46); MONOCYTES ABSOLUTE AUTO 0.28 K/mm3 (0.16-1.47); MONOCYTES PERCENT AUTO 3 % (4-13); Mean Corpuscular HGB Conc 33.7 g/dL (31.5-36.5); Mean Corpuscular Volume 111 fL (80-100); NEUTROPHILS ABSOLUTE AUTO 4.38 K/mm3 (1.96-9.15); NEUTROPHILS PERCENT AUTO 48 % (41-73); NRBC ABSOLUTE 0.00 K/mm3 (0.00-0.02); NRBC Auto 0.0 /100 WBC (0.0-0.2); Platelet Count 67 K/mm3 (150-400); RDW Coefficient Variation 15.6 % (11.7-14.2); RDW Standard Deviation 63.7 fL (35.1-46.3)
[2025-01-23 04:16] LABS: Anion Gap 8.0 mmol/L (3-11); Blood Urea Nitrogen 30.0 mg/dL (8-24); CO2, Blood 35.0 mmol/L (21-32); Calcium, Blood 8.4 mg/dL (8.5-10.1); Chloride, Blood 90.0 mmol/L (98-108); Creatinine, Blood 1.14 mg/dL (0.60-1.20); Glucose, Blood 92.0 mg/dL (70-99); Potassium, Blood 4.0 mmol/L (3.5-5.5); Sodium, Blood 129.0 mmol/L (136-145)
--- NOTE | 2025-01-23 05:52 | NUR ---
SHIFT SUMMARY PT A&0 X4, VENTRICULAR PACED RHYTHM ON MONITOR WITH RATE OF 50, BP STABLE WITH MAP >65, SATS REMAIN >92% ON RA, DENIES SOB OR CP. ENDORSES ACUTE ON CHRONIC LEFT HIP AND SHOULDER PAIN AT MULTIPLE TIMES DURING SHIFT, MEDICATED PER EMAR. BLE AND SCROTAL EDEMA IMPROVED, NO WEEPING OF LOWER EXTREMITIES. IVEY IN PLACE AND DRAINING ORANGE-YELLOW URINE TO GRAVITY. DENIES UNMET NEEDS AT THIS TIME, CALL LIGHT WITHIN REACH.
[2025-01-23] MEDS ORDERED: Enoxaparin 40 MG/0.4 ML SYR SC SCH (09:00)
--- NOTE | 2025-01-23 17:39 | NUR ---
SHIFT SUMMARY NO ACUTE EVENTS. PT ALERT, ORIENTED, AND COOPERATIVE W/ CARE. PT UP TO CHAIR FOR THE DAY. PT WALKS AROUND UNIT AND HALLWAY W/ THIS RN AND WALKER- TOLERATES WELL. PT ON ROOM AIR W/ CLEAR LUNG SOUNDS. PT TRANSITIONED TO PO DIURETIC W/ GOOD EFFECT. IVEY CATH DC'D AND WICKING SYSTEM IN PLACE W/ GOOD OUTPUT. PT HR 50S- VENTRICULAR PACED VIA CONTINUOUS MONITOR. BP REMAIN SOFT W/ SYSTOLIC IN THE 90-100S. PO BP MEDS HELD THIS SHIFT. MAPS REMAIN GREATER THAN 65. PT AFEBRILE. NO BM THIS SHIFT. PT , ELZBIETA, AT BEDSIDE. DR. RANGEL AND DR. BROWN TO ROOM TO UPDATE POC. PLAN FOR POSSIBLE DC TOMORROW. PT TO HAVE PT EVAL PRIOR TO DC. PT USING CALL LIGHT APPROPRIATELY AND IS W/IN REACH. PLAN OF CARE ONGOING
--- NOTE | 2025-01-23 19:11 | NUR ---
PALLIATIVE CARE VISIT: CONSULT RECEIVED FOR CARDIAC, MEDICALLY FRAGILE, END STAGE DISEASE. REVIEWED MEDICAL RECORD AND REVIEWED DURING TEAM MEETING THIS MORNING. POLST FOUND ON FILE STATING CPR. PT IS CURRENTLY DNR. MET WITH PT AND HIS IN THE ROOM. PT IS AGREEABLE TO DISCUSSION. DISCUSSED GOC AND POLST. PT AGREEABLE TO COMPLETING POLST TO REPLACE OLD POLST. PT EDUCATED ON CHOICES. PT WANTS DNR SELECTIVE TREATMENT. NEEDS SIGNED BY MD. GOC: PT/ STATE HE HAS BEEN REFERRED TO HOSPICE SERVICES BY PCP AND HAVE HAD CALLS FROM [employer] [facility] [employer] AND [facility]. THEY ARE INTERESTED IN HOSPICE. WHEN EDUCATING ON WHAT HOSPICE COVERS AND WHAT GOALS OF HOSPICE ARE, PT AND STATED THEY STILL WANT TO FOLLOW-UP WITH [employer] DR. GROSS AT [facility] IN [place] PRIOR TO MAKING DECISION TO ACCEPT HOSPICE SERVICES. ACCORDING TO ELZBIETA, DR. GROSS TOLD THEM HE CAN DO A PROCEDURE THAT MAY HELP. ADVISED GORDY RUFF TO OBTAIN MEDICAL RECORDS FROM CURRENT VISIT TOMORROW AND SEND TO DR. GROSS'S OFFICE AND MAKE APPOINTMENT TO FIND OUT IF HE IS STILL A CANDIDATE. PT STATED HE IS WILLING TO DO SURGERY IF IT WILL HELP. PT STATES IF SURGERY IS NOT AN OPTION THEN HE WILL ACCEPT HOSPICE SERVICES. UPDATED PRIMARY RN WITH GOC/POLST.
[2025-01-24] VITALS (7 sets, daily range): BP systolic 93–107; BP diastolic 68–76
--- NOTE | 2025-01-24 05:28 | NUR ---
SHIFT SUMMARY: NO ACUTE CHANGES T/O THE NIGHT. PT REMAINS A&O X4, ABLE TO MAKE NEEDS KNOWN AND FOLLOW COMMANDS. PT NOTED TO BE AWAKE/RESTLESS T/O THE NIGHT. PT REQUESTED MULTIPLE DRINKS/SNACKS. AFEBRILE. ENDORSED ACUTE/CHRONIC SHOULDER/KNEE/FOOT PAIN THAT HE WAS MEDICATED FOR W/PRN HYDROCODONE, SEE EMAR. PT VENTRICULAR PACED, HR SET AT 50. SBP STABLE, MAPS >65. DENIED SOB. ON RA. SATS >93%. LUNGS CLEAR, BREATHING EVEN AND UNLABORED. ABD REMAINS DISTENDED, BT ACTIVE X4. DENIES NAUSEA. WICKING SYSTEM IN PLACE, W/PT HAVING GREAT OUTPUT. POWERGLIDE IN MARKEL REMAINS SALINE LOCKED. CARE CONTINUES. THIS RN TO REPORT TO ONCOMING RN.
[2025-01-24 08:09] LABS: Anion Gap 9.0 mmol/L (3-11); Blood Urea Nitrogen 25.0 mg/dL (8-24); CO2, Blood 35.0 mmol/L (21-32); Calcium, Blood 8.3 mg/dL (8.5-10.1); Chloride, Blood 86.0 mmol/L (98-108); Creatinine, Blood 1.04 mg/dL (0.60-1.20); Glucose, Blood 100.0 mg/dL (70-99); Magnesium, Blood 2.5 mg/dL (1.6-2.4); Potassium, Blood 3.3 mmol/L (3.5-5.5); Sodium, Blood 127.0 mmol/L (136-145)
--- NOTE | 2025-01-24 10:52 | NUR ---
DR. RANGEL AND DR. BROWN TO BEDSIDE FOR PT EVAL AND TO DISCUSS DC. PRESENT FOR CONVERSATION AND IS AGREEABLE.
[2025-01-24] MEDS ORDERED: BUME2 PO (11:12)
--- NOTE | 2025-01-24 12:37 | NUR ---
PT DISCHARGE PT TO DISCHARGE HOME, W/V INSTRUCTIONS DISCUSSED W/ PT AND ELBZIETA. PT TO FOLLOW UP W/ PCP ON 01/30 SCHEDULED. PT TO FOLLOW UP W/ CARDIOLOGY TEAM W/IN 1-2 WEEKS. PT TO WEIGH SELF DAILY AND INCREASE DIURETIC DOSING IF NEEDED. S/SX FLUID OVERLOAD DISCUSSED AND PT/ VERBALIZED UNDERSTANDING. PT ENCOURAGED TO LIMIT SODIUM AND FLUID INTAKE DAILY. POWERGLIDE DC'D, TIP INTACT. VITALS UPDATED AND STABLE ON DISCHARGE.
== END 2025-01-24 12:30 | disposition home health service (06) | DRG 291 ==
LOC: ER 11:58 → ERHOLD 13:47 → ICUE 13:47 → EDBEDREQSVC 17:15 → EDBEDREQ 17:15 → ICUE 19:25
PROVIDERS: Hospitalist; Physician Assistant; Student in an Organized Health Care Education/Training Program; ADMIT Family Medicine
PROC: 0W9G3ZZ Drainage of Peritoneal Cavity, Percutaneous Approach (ICD-10-PCS; principal; 2025-01-22)
PROC: 30233J1 Transfusion of Nonautologous Serum Albumin into Peripheral Vein, Percutaneous Approach (ICD-10-PCS; 2025-01-22)
PROC: 0T9B70Z Drainage of Bladder with Drainage Device, Via Natural or Artificial Opening (ICD-10-PCS; 2025-01-22)
DX: I13.0 Hypertensive heart and chronic kidney disease with heart failure and stage 1 through stage 4 chronic kidney disease, or unspecified chronic kidney disease (principal); I50.23 Acute on chronic systolic (congestive) heart failure; R18.8 Other ascites; I44.2 Atrioventricular block, complete; E87.1 Hypo-osmolality and hyponatremia; I47.20 Ventricular tachycardia, unspecified; K76.1 Chronic passive congestion of liver; Z66 Do not resuscitate; I42.0 Dilated cardiomyopathy; I25.5 Ischemic cardiomyopathy; I50.84 End stage heart failure; I49.5 Sick sinus syndrome; I08.1 Rheumatic disorders of both mitral and tricuspid valves; E03.9 Hypothyroidism, unspecified; N18.30 Chronic kidney disease, stage 3 unspecified; I25.10 Atherosclerotic heart disease of native coronary artery without angina pectoris; I48.0 Paroxysmal atrial fibrillation; D69.6 Thrombocytopenia, unspecified; K74.69 Other cirrhosis of liver; E78.5 Hyperlipidemia, unspecified; I27.20 Pulmonary hypertension, unspecified; D63.1 Anemia in chronic kidney disease; E87.6 Hypokalemia; Z85.6 Personal history of leukemia; Z95.810 Presence of automatic (implantable) cardiac defibrillator; Z88.8 Allergy status to other drugs, medicaments and biological substances; Z79.890 Hormone replacement therapy; Z95.1 Presence of aortocoronary bypass graft; Z87.891 Personal history of nicotine dependence
CPT/HCPCS: 36415; 49083; 51702; 71046; 80048; 80053; 80069; 82140; 83735; 83880; 84439; 84443; 84481; 85025; 85610; 93005; 93010; 93306; 97110; 97116; 97162; 99285-25; A9270; C1751; J1650; J1938; J3475; J3480; J7050; P9047